=== PATIENT | female | born 1970 | race Caucasian/White ===

== ENCOUNTER → 2016-03-28 | Outpatient (CLI) | payer BC ==
--- NOTE | 2016-03-29 07:35 | US ---
EXAMINATION TYPE: US transvaginal DATE OF EXAM: 03/28/2016 4:39 PM COMPARISON: NONE CLINICAL HISTORY: left pelvic pain x 4 weeks; hysterectomy. TECHNIQUE: Transvaginal (TV) Date of LMP: NA EXAM MEASUREMENTS: Uterus: surgically absent Endometrial Stripe: surgically absent Right Ovary: 2.4 x 1.5 x 1.5cm Left Ovary: 1.6 x 0.9 x 1.1cm FINDINGS: 1. Uterus: surgically removed 2. Endometrium: surgically removed 3. Right Ovary: couple of follicular cysts noted with larger = 1.3 x 0.9 x 0.9cm 4. Left Ovary: small follicles noted, single hyperechoic focus (calcification) noted mid ovary = 0.2 x 0.1 x 0.1cm Spectral, color and waveform doppler imaging shows good arterial and venous flow within the ovaries ; there is no evidence for ovarian torsion. 5. Bilateral Adnexa: wnl 6. Posterior cul-de-sac: wnl IMPRESSION: 1. Postoperative changes of the hysterectomy. 2. Bilateral ovarian follicular cysts. Normal Values: Uterine Length: < 10cm Endometrium: Proliferative (Day 6 ? 14): 4 ? 6mm Secretory (Day 15 ? 28): 7 ? 14mm Post Menopausal (and not symptomatic): up to 8mm Post Menopausal (with vaginal bleeding): upper limits <5mm Post Menopausal with HRT: upper limits 8 - 15mm Post Menopausal with tamoxifen: < 6mm (although 50% of those receiving tamoxifen have been reported t o have thickness >8mm)
== END | disposition home or self-care (01) ==
LOC: RADUSWWP 16:07
PROVIDERS: ATTEND Family Medicine
DX: N83.202 Unspecified ovarian cyst, left side (principal); N83.201 Unspecified ovarian cyst, right side; Z90.710 Acquired absence of both cervix and uterus
CPT/HCPCS: 76830; 93975

== ENCOUNTER → 2016-05-24 | Outpatient (CLI) | payer BC ==
--- NOTE | 2016-05-24 14:26 | XR ---
EXAMINATION TYPE: XR chest 2V DATE OF EXAM: 05/24/2016 2:22 PM COMPARISON: NONE TECHNIQUE: PA and lateral views submitted. HISTORY: Cough FINDINGS: The lungs are clear and there is no pneumothorax, pleural effusion, or focal pneumonia. Hypertrophi c change of the spine noted. IMPRESSION: 1. No acute process.
== END | disposition home or self-care (01) ==
LOC: RADXRMAIN 14:07
PROVIDERS: ATTEND Nurse Practitioner Primary Care
DX: R05 Cough (principal)
CPT/HCPCS: 71020

== ENCOUNTER → 2016-07-11 | Outpatient (CLI) | payer BC ==
[2016-07-11 07:48] LABS: CH 29.3; CHCM 32.3; HCT 43.5 % (34.0-46.0); HDW 2.26; MCH 29.4 pg (25.0-35.0); MCHC 32.2 g/dL (31.0-37.0); MCV 91.3 fL (80.0-100.0); Mean Platelet Volume 7.2; RBC 4.76 m/uL (3.80-5.40); RDW 13.6 % (11.5-15.5); WBC 4.7 k/uL (3.8-10.6)
[2016-07-11 08:27] LABS: ALT 30 U/L (9-52); AST 25 U/L (14-36); Alkaline Phosphatase 82 U/L (38-126); Anion Gap 7 mmol/L; Blood Urea Nitrogen 17 mg/dL (7-17); Calcium 9.4 mg/dL (8.4-10.2); Carbon Dioxide 29 mmol/L (22-30); Chloride 105 mmol/L (98-107); Cholesterol 181 mg/dL (<200); Glucose 90 mg/dL (74-99); HDL Cholesterol 70 mg/dL (40-60); Non-African American GFR(MDRD) >60 (>60 ml/min/1.73 sqM); Potassium 5.4 mmol/L (3.5-5.1); Sodium 141 mmol/L (137-145); Total Bilirubin 0.8 mg/dL (0.2-1.3); Total Protein 6.9 g/dL (6.3-8.2); Triglycerides 50 mg/dL (<150)
== END ==
LOC: LABWHC1 07:02
PROVIDERS: ATTEND Nurse Practitioner Primary Care
DX: Z12.31 Encounter for screening mammogram for malignant neoplasm of breast (principal)
CPT/HCPCS: 36415; 80053; 80061; 82306; 84443; 85027

== ENCOUNTER → 2018-04-01 | Outpatient (CLI) | payer BC ==
--- NOTE | 2018-04-04 17:03 | MM ---
Reason for exam: clinical finding. Last mammogram was performed 3 years and 4 months ago. History: Patient is postmenopausal. Family history of breast cancer in maternal grandmother at age 40. Took hormonal contraceptives for 12 years. Taking estrogen for 1 month. Indicated problem(s): nipple abnormality in the left breast. Physical Findings: Nurse did not find any significant physical abnormalities on exam. MG Diagnostic Mammo LT w CAD CC, MLO, and ML view(s) were taken of the left breast. Prior study comparison: November 28, 2014, bilateral MG diagnostic mammo w CAD CRIS. August 26, 2011, bilateral digital screening mammo w/CAD. The breast tissue is heterogeneously dense. This may lower the sensitivity of mammography. There are benign-appearing diffuse fine calcifications in the left breast. There are four groups of calcifications in the left ML view that a short term follow up is recommended for, these are changed when compared to prior studies. At the follow up a left lateral mag. view should be included. These results were verbally communicated with the patient and result sheet given to the patient on 04/01/18. ASSESSMENT: Probably benign, BI-RAD 3 RECOMMENDATION: Follow-up diagnostic mammogram of the left breast in 6 months.
== END | disposition home or self-care (01) ==
LOC: RADMAMWWP 08:11
PROVIDERS: ATTEND Obstetrics & Gynecology Obstetrics
DX: N64.59 Other signs and symptoms in breast (principal)
CPT/HCPCS: 77065

== ENCOUNTER → 2019-08-25 | Outpatient (CLI) | payer BC | END | disposition home or self-care (01) | LOC: LABWHC1 08:06 | PROVIDERS: ATTEND Otolaryngology | DX: J30.89 Other allergic rhinitis (principal) | CPT/HCPCS: 36415 ==

== ENCOUNTER → 2021-12-27 | Outpatient (CLI) | payer BC ==
--- NOTE | 2022-01-03 08:02 | MM ---
Reason for Exam: Screening (asymptomatic). Last screening mammogram was performed 12 month(s) ago. Patient History: Menarche at age 10. First Full-Term at age 18. Hysterectomy at age 36. Postmenopausal. Patient has history of breast feeding. Currently using Estrogen, for 1 month. Patient used Hormonal Contraceptives for 12 years. Maternal grandmother had breast cancer, age 40. Risk Values: Heather 5 year model risk: 0.8%. NCI Lifetime model risk: 6.9%. Prior Study Comparison: 08/26/2011 Bilateral Screening Mammogram, [facility]. 11/28/2014 Bilateral Diagnostic Mammogram, [facility]. 07/18/2016 Bilateral MG diagnostic mammo w CAD CRIS - 2, [facility]. 07/30/2016 Right MG diagnostic mammo RT w CAD - 2, [facility]. 12/18/2017 Bilateral MG screening mammo w/o cad, [facility]. 04/01/2018 Left Diagnostic Mammogram, [facility]. 08/12/2019 Bilateral MG 3D screening mammo w/cad, [facility]. 08/18/2020 Bilateral MG 3D screening mammo w/cad, [facility]. 08/31/2020 Left MG 3D diag mammo w/cad [facility]. Tissue Density: The breast tissue is heterogeneously dense. This may lower the sensitivity of mammography. Findings: Analyzed By CAD. There are scattered and fairly diffuse tiny benign-appearing round calcifications throughout the bilateral breasts redemonstrated. Benign-appearing bilateral axillary lymph nodes are again seen. There is no suspicious new group of microcalcifications or new suspicious mass in either breast. Overall Assessment: Benign, BI-RAD 2 Management: Screening Mammogram of both breasts in 1 year. A clinical breast exam by your physician is recommended on an annual basis and results should be correlated with mammographic findings. Electronically signed and approved by: Dirk Vásquez M.D.
--- NOTE | 2022-01-03 08:02 | MM ---
Reason for Exam: Screening (asymptomatic). Last screening mammogram was performed 12 month(s) ago. Patient History: Menarche at age 10. First Full-Term at age 18. Hysterectomy at age 36. Postmenopausal. Patient has history of breast feeding. Currently using Estrogen, for 1 month. Patient used Hormonal Contraceptives for 12 years. Maternal grandmother had breast cancer, age 40. Risk Values: Heather 5 year model risk: 0.8%. NCI Lifetime model risk: 6.9%. Prior Study Comparison: 08/26/2011 Bilateral Screening Mammogram, [facility]. 11/28/2014 Bilateral Diagnostic Mammogram, [facility]. 07/18/2016 Bilateral MG diagnostic mammo w CAD CRIS - 2, [facility] 07/30/2016 Right MG diagnostic mammo RT w CAD - 2, [facility]. 12/18/2017 Bilateral MG screening mammo w/o cad, [facility]. 04/01/2018 Left Diagnostic Mammogram, [facility]. 08/12/2019 Bilateral MG 3D screening mammo w/cad, [facility]. 08/18/2020 Bilateral MG 3D screening mammo w/cad, [facility]. 08/31/2020 Left MG 3D diag mammo w/cad [facility]. Tissue Density: The breast tissue is heterogeneously dense. This may lower the sensitivity of mammography. Findings: Analyzed By CAD. There are scattered and fairly diffuse tiny benign-appearing round calcifications throughout the bilateral breasts redemonstrated. Benign-appearing bilateral axillary lymph nodes are again seen. There is no suspicious new group of microcalcifications or new suspicious mass in either breast. Overall Assessment: Benign, BI-RAD 2 Management: Screening Mammogram of both breasts in 1 year. A clinical breast exam by your physician is recommended on an annual basis and results should be correlated with mammographic findings. Electronically signed and approved by: Dirk Vásquez M.D.
== END | disposition home or self-care (01) ==
LOC: RADMAMWWP 15:40
PROVIDERS: ATTEND Obstetrics & Gynecology Obstetrics
DX: Z12.31 Encounter for screening mammogram for malignant neoplasm of breast (principal); Z78.0 Asymptomatic menopausal state; Z80.3 Family history of malignant neoplasm of breast
CPT/HCPCS: 77063; 77067

== ENCOUNTER → 2022-02-19 | Outpatient (CLI) | payer BC ==
[2022-02-19 11:03] LABS: Chol/HDL Ratio 3.09 Ratio; LDL Cholesterol,Calculated 109.9 mg/dL (0.0-131.0); VLDL Calculation 14.52 mg/dL (5.00-40.00)
== END | disposition home or self-care (01) ==
LOC: LABWHC1 06:34
PROVIDERS: ATTEND Nurse Practitioner Family
DX: Z13.220 Encounter for screening for lipoid disorders (principal); Z13.1 Encounter for screening for diabetes mellitus
CPT/HCPCS: 36415; 80061; 83036

== ENCOUNTER → 2024-05-21 | Outpatient (CLI) | payer BC ==
--- NOTE | 2024-05-21 08:14 | USB ---
Reason for Exam: Clinical finding. Patient History: Menarche at age 10. First Full-Term at age 18. Hysterectomy at age 36. Postmenopausal. Patient has history of breast feeding. Currently using Estrogen, for 1 month. Patient used Hormonal Contraceptives for 12 years. Maternal grandmother had breast cancer, age 40. Risk Values: Heather 5 year model risk: 0.9%. NCI Lifetime model risk: 6.7%. Technique: Method: Whole Breast Handheld. Prior Study Comparison: 08/18/2020 Bilateral MG 3D screening mammo w/cad, [facility]. 08/31/2020 Left MG 3D diag mammo w/cad , [facility]. 12/27/2021 Bilateral MG 3D screening mammo w/cad, [facility]. Findings: The whole breast of the left breast, the axilla of the left breast and the retroareolar of the left breast were scanned. A complete US of all four quadrants of the breast, axilla, and retro-areolar region were reviewed. Exam performed for left-sided nipple inversion which is a chronic finding in this patient. At 4:00, 3 cm from the nipple, there is a benign-appearing 5 mm cyst cluster. At 9:00, 3 cm from the nipple, there is a benign 6 mm cyst. Some minimal subareolar duct ectasia is noted. Axilla shows a prominent but nonenlarged lymph node which is nonspecific. Otherwise, no solid or cystic lesion. Overall Assessment: Probably benign, BI-RAD 3 Management: Diagnostic Mammogram of both breasts in 7 months. A clinical breast exam by your physician is recommended on an annual basis and results should be correlated with mammographic findings. This exam should not preclude additional follow-up of suspicious palpable abnormalities. Results were given to the patient verbally at the time of exam. [facility], , 05/21/2024 8:11 AM. Electronically signed and approved by: Natasha Caldwell M.D. Radiologist
== END | disposition home or self-care (01) ==
LOC: RADUSWWP 07:25
PROVIDERS: ATTEND Obstetrics & Gynecology Obstetrics
DX: R68.89 Other general symptoms and signs (principal); Z80.3 Family history of malignant neoplasm of breast; Z78.0 Asymptomatic menopausal state; Z92.0 Personal history of contraception